=== PATIENT | female | born 1995 | race Caucasian/White ===

== ENCOUNTER 2019-01-17 08:23 | Emergency (ER) | payer MEDICAID ==
[~2019-01-17] VITALS: Ht 167.6 cm; Wt 68.0 kg
[2019-01-17 08:32] VITALS: BP_SYST 128
--- NOTE | 2019-01-17 08:36 | NUR ---
Patient to ER bed 7 to gown for evaluation. Side rails up. Report given to Rogelio GUILLORY.
--- NOTE | 2019-01-17 08:46 | NUR ---
Patient comes to ER in personal vehicle, [employer], verbal and ambulatory. Patient comes with complain of RT eye pain that started yesterday. Eye has some swelling and redness. Active ROM and PERRL noted. Patient states that she has some pain upon blinking and that she sees "floaties" in her eyes. Patient states that she has seasonal allergies that "have not been that bad this year" No other complaint or injury at this time.
--- NOTE | 2019-01-17 09:30 | NUR ---
DR CRUZ at bedside for ER evaluation
[2019-01-17 10:40] VITALS: BP_SYST 124
--- NOTE | 2019-01-17 10:40 | NUR ---
Patient given written and verbal discharge instructions and verbalizes understanding. ER MD discussed with patient the results and treatment provided. Patient in stable condition. ID arm band removed. Rx of polymixin and erythromycin given. Patient educated on pain management, stye and blepharitis and to follow up with PMD. Pain Scale 0/10. Opportunity for questions provided and answered. Medication side effect fact sheet provided.
== END 2019-01-17 10:40 | disposition home or self-care (01) ==
LOC: SED 08:23
DX: H01.002 Unspecified blepharitis right lower eyelid (principal); H00.012 Hordeolum externum right lower eyelid
CPT/HCPCS: 99283

== ENCOUNTER 2019-10-08 18:14 | Observation (INO) | payer MEDICAID ==
[~2019-10-08] VITALS: Ht 167.6 cm; Wt 70.3 kg
== END 2019-10-08 19:00 | disposition home or self-care (01) ==
LOC: SPU 18:14
PROVIDERS: ADMIT Obstetrics & Gynecology; ATTEND Obstetrics & Gynecology
DX: O36.8120 Decreased fetal movements, second trimester, not applicable or unspecified (principal); Z3A.27 27 weeks gestation of pregnancy
CPT/HCPCS: 81002; G0378